=== PATIENT | male | born 2000 | race Caucasian/White ===

== ENCOUNTER 2022-05-03 13:08 | Day surgery (SDC) | payer BC ==
[2022-04-30 13:18] VITALS: BMI 20.5
[2022-05-03 13:50] VITALS: RESP 18
[2022-05-03 14:44] VITALS: TEMP 98.2
[2022-05-03 14:45] VITALS: BP 126/74; PULSE 80
== END 2022-05-03 14:52 | disposition home or self-care (01) ==
LOC: FASU-ENDO 13:08
PROVIDERS: ATTEND Internal Medicine Gastroenterology
PROC: 0DB68ZX Excision of Stomach, Via Natural or Artificial Opening Endoscopic, Diagnostic (ICD-10-PCS; 2022-05-03)
PROC: 0DB48ZX Excision of Esophagogastric Junction, Via Natural or Artificial Opening Endoscopic, Diagnostic (ICD-10-PCS; 2022-05-03)
PROC: 0DB98ZX Excision of Duodenum, Via Natural or Artificial Opening Endoscopic, Diagnostic (ICD-10-PCS; principal; 2022-05-03 14:13)
DX: K29.50 Unspecified chronic gastritis without bleeding (principal); K20.90 Esophagitis, unspecified without bleeding; R10.13 Epigastric pain; R11.0 Nausea
CPT/HCPCS: 88305-TC; 88342-TC